=== PATIENT | female | born 1965 | race Caucasian/White ===

== ENCOUNTER 2017-05-05 04:19 | Inpatient (IN) | payer MEDICARE ==
[~2017-05-05] VITALS: Ht 162.6 cm; Wt 90.9 kg
[~2017-05-05 04:19] MED LIST: ADVAIR 250/501 DISK INH; CELEXA40 MG PO; COLACE100 MG PO; DEPAKOTE ER250 MG PO; HYDROCODON-ACE1 EAC7 PO; LASIX20 MG PO; LINZESS290 MCG PO; MOBIC7.5 MG PO; PROAIR HFA8.5 GM INH; SEROQUEL200 MG PO; TRAZODONE HCL150 MG PO; XANAX1 MG PO
[2017-05-05 04:53] LABS: BASOPHILS 0.2 % (0-2); EOSINOPHILS 3.2 % (0-7); HEMATOCRIT 40.7 % (36.0-48.0); HEMOGLOBIN 12.6 g/dL (12-16); IMMATURE GRANULOCYTES 0.3 % (0-5); LYMPHOCYTES 15.4 % (15-50); MCV 87.3 fL (80.0-100.0); NEUTROPHILS 75.9 % (40-80); PLATELET COUNT 228 10x3/uL (130-400); RBC 4.66 10x6/uL (4.00-5.40); RDW 16.4 % (11.5-14.5); WBC 12.3 10x3/uL (4.8-10.8)
[2017-05-05 05:13] LABS: ALBUMIN 3.2 g/dL (3.4-5.0); ALKALINE PHOSPHATASE 53 U/L (46-116); ALT (SGPT) 21 U/L (10-68); CALCIUM 9.6 mg/dL (8.5-10.1); CHLORIDE - SERUM 102 mmol/L (98-107); CREATININE - SERUM 0.6 mg/dL (0.6-1.3); POTASSIUM - SERUM 4.2 mmol/L (3.5-5.1); PROTEIN - SERUM 7.9 g/dL (6.4-8.2); SODIUM 139 mmol/L (136-145); UREA NITROGEN 14 mg/dL (7-18); eGFR NON AFRICAN AMERICAN > 90 mL/min (90-120)
[2017-05-05 05:16] LABS: CKMB 2.1 U/L (0.0-3.6)
[2017-05-05 05:18] LABS: CALC OSMOLALITY 283 mosm/kg (275-300); GLUCOSE 181 mg/dL (74-106); TROPONIN-I < 0.017 ng/mL (0.000-0.060)
[2017-05-05 09:37] VITALS: BP 130/88; Ht 162.6 cm; Wt 90.9 kg
[2017-05-05 13:02] VITALS: BP 128/94
[2017-05-05 17:12] VITALS: BP 140/88
--- NOTE | 2017-05-05 19:30 | NUR ---
REC'D PATIENT LYING IN BED. ALERT AND ORIENTED X4. REPORTED PAIN OF 5/10. NO DISTRESS NOTED AT THIS TIME. STATED THAT SHE TALKED TO THE AND WAS SUPPOSE TO GET A FLEXARIL. THERE IS NO ORDER AND I INFORMED HER OF THAT. ADMIN PM MEDS PRESCRIBED. INSTRUCTED TO CALL IF NEEDED ANYTHING. BED LOW, LOCKED CALL LIGHT IN REACH.
[2017-05-05 20:00] VITALS: BP 130/85
[2017-05-06] VITALS: BP 138/91
[2017-05-06 04:00] VITALS: BP 161/87
[2017-05-06 05:54] LABS: BASOPHILS 0 % (0-2); EOSINOPHILS 0 % (0-7); HEMATOCRIT 37.1 % (36.0-48.0); HEMOGLOBIN 11.9 g/dL (12-16); IMMATURE GRANULOCYTES 0.3 % (0-5); LYMPHOCYTES 18.6 % (15-50); MCHC 32.1 g/dL (31.0-37.0); MEAN PLATELET VOLUME 8.9 fL (7.4-10.4); MONOCYTES 1.7 % (2-11); NEUTROPHILS 79.4 % (40-80); PLATELET COUNT 228 10x3/uL (130-400); RBC 4.41 10x6/uL (4.00-5.40)
[2017-05-06 06:06] LABS: MCV 84.1 fL (80.0-100.0); WBC 6.6 10x3/uL (4.8-10.8)
[2017-05-06 06:09] LABS: HEMOGLOBIN A1C 6.3 % (4.8-6.0)
[2017-05-06 06:24] LABS: ALKALINE PHOSPHATASE 43 U/L (46-116); ALT (SGPT) 21 U/L (10-68); CALC OSMOLALITY 273 mosm/kg (275-300); CALCIUM 9.6 mg/dL (8.5-10.1); CARBON DIOXIDE 30.5 mmol/L (21.0-32.0); CHLORIDE - SERUM 100 mmol/L (98-107); CREATININE - SERUM 0.5 mg/dL (0.6-1.3); GLUCOSE 151 mg/dL (74-106); MAGNESIUM - SERUM 1.5 mg/dL (1.8-2.4); PHOSPHOROUS 3.9 mg/dL (2.5-4.9); POTASSIUM - SERUM 4.6 mmol/L (3.5-5.1); PRO BNP 654 pg/mL (0-125); PROTEIN - SERUM 7.4 g/dL (6.4-8.2); SODIUM 136 mmol/L (136-145); eGFR NON AFRICAN AMERICAN > 90 mL/min (90-120)
[2017-05-06 06:33] LABS: UREA NITROGEN 10 mg/dL (7-18)
[2017-05-06 08:31] VITALS: BP 125/89
--- NOTE | 2017-05-06 12:04 | NUR ---
PATIENT ALERT IN BED WATCHING TV. NO SIGNS OF DISTRESS NOTED. ACCU CHECK 113. DENIES NEEDS. SIDE RAILS UP X2. BED IN LOW POSITION. CALL LIGHT IN REACH.
[2017-05-06 12:14] VITALS: BP 120/78
[2017-05-06 16:28] VITALS: BP 111/74
--- NOTE | 2017-05-06 19:45 | NUR ---
RECIEVED SHIFT REPORT. PT IS LYING IN BED. ALERT AND ORIENTED AND ABLE TO VERBALIZE NEEDS. IV IS PATENT AND SALINE LOC AT THIS TIME. PT STATES SHE IS AMBULATORY WITH ASSISTANCE. O2 @ 2 PER NASAL CANNUAL. PARSONS IS DRAINING URINE BY GRAVITY. PT STATES PAIN IS 5/10. NO NEEDS ARE VERBALIZED AT THIS TIME. WILL CONTINUE TO MONITOR. SIDE RAILS ARE UP X 2. BED IS IN LOWEST POSITOIN. CALL LIGHT IS WITHIN REACH.
[2017-05-06 20:00] VITALS: BP 125/80
--- NOTE | 2017-05-06 21:13 | NUR ---
SHIFT ASSESSMENT COMPLETED. NIGHT MEDS GIVEN WITH NO PROBLEMS. NO NEEDS ARE VERBALIZED. WILL MONITOR. SIDE RAILS X 2. BED LOW. CALL LIGHT IN REACH.
[2017-05-07] VITALS: BP 132/86
[2017-05-07 04:00] VITALS: BP 135/88
[2017-05-07 06:23] LABS: BASOPHILS 0 % (0-2); EOSINOPHILS 0 % (0-7); HEMATOCRIT 36.2 % (36.0-48.0); HEMOGLOBIN 11.4 g/dL (12-16); IMMATURE GRANULOCYTES 0.2 % (0-5); LYMPHOCYTES 13.3 % (15-50); MCH 26.6 pg (26.0-34.0); MCHC 31.5 g/dL (31.0-37.0); MCV 84.6 fL (80.0-100.0); MEAN PLATELET VOLUME 9.1 fL (7.4-10.4); MONOCYTES 3.7 % (2-11); NEUTROPHILS 82.8 % (40-80); PLATELET COUNT 230 10x3/uL (130-400); RBC 4.28 10x6/uL (4.00-5.40); RDW 16.4 % (11.5-14.5)
[2017-05-07 06:41] LABS: CALCIUM 9.7 mg/dL (8.5-10.1); CARBON DIOXIDE 29.8 mmol/L (21.0-32.0); CHLORIDE - SERUM 100 mmol/L (98-107); GLUCOSE 143 mg/dL (74-106); MAGNESIUM - SERUM 1.8 mg/dL (1.8-2.4); PHOSPHOROUS 4.3 mg/dL (2.5-4.9); POTASSIUM - SERUM 4.8 mmol/L (3.5-5.1); SODIUM 137 mmol/L (136-145)
[2017-05-07 06:42] LABS: CALC OSMOLALITY 278 mosm/kg (275-300); CREATININE - SERUM 0.7 mg/dL (0.6-1.3); UREA NITROGEN 21 mg/dL (7-18); eGFR NON AFRICAN AMERICAN > 90 mL/min (90-120)
--- NOTE | 2017-05-07 08:15 | NUR ---
ASSESSMENT COMPLETE. SL TO L FA PATENT. O2 2L NC IN USE. BUTTOCKS REDDENED. PARSONS PATENT DRAINING YELLOW URINE. ABDOMEN DISTENDED BUT SOFT. STATES "IT HAS BEEN THAT WAY FOR YEARS."
[2017-05-07 08:19] VITALS: BP 131/62
--- NOTE | 2017-05-07 09:50 | NUR ---
OFF FLOOR TO CT VIA BED.
--- NOTE | 2017-05-07 10:10 | NUR ---
RETURNED TO ROOM. DENIES ANY NEEDS AT PRESENT.
--- NOTE | 2017-05-07 10:40 | NUR ---
Patient Name: LAKSHMI SALINAS Admission Status: ER Accout number: [id number] Admission Date: 05-05-2017 : 1965 Admission Diagnosis: Attending: LINH Current LOS: 2 Anticipated DC Date: 05-10-2017 Planned Disposition: Nursing Facility SWAPNA Cert Primary Insurance: MEDICARE A & B Discharge Planning Comments: CM MET WITH PATIENT REGARDING D/C NEEDS AND PLANS. PATIENT STATED SHE LIVES AT [facility] AND WILL RETURN THERE AT DISCHARGE. PATIENT USES A WHEELCHAIR DURING THE DAY (2 PERSON TRANSFER). PATIENTS PCP IS DR. HILL AND PHARMACY IS IN HOUSE. PATIENT USES A WHEELCHAIR DURING THE DAY - HAS HELP TRANSFERRING. PATIENT USES OXYGEN, PORT 02, NEBULIZER, AND EITHER A BI-PAP OR C-PAP SHE CAN'T REMEMBER WHICH. PCP DR. HILL IN HOUSE PHARMACY AT [facility] NO FAMILY CONTACT Junior Financial Analyst: Terrie Daniel Is the patient Alert and Oriented? Yes 0 * How many steps to enter\exit or inside your home? 0 0 * PCP DR. HILL 0 * Pharmacy IN HOUSE ([facility]) 0 * Preadmission Environment Longterm Shelter 0 * Facility Name [facility] 0 * ADLs Partial Dependent 0 * Partial ADLs (Assistance needed) Ambulation Bathing Dressing Toileting Transfers 0 * Equipment Nebulizer Oxygen Wheelchair 0 * Other Equipment PORTABLE O2, PATIENT HAS A BIPAP OR C-PAP DOES NOT KNOW WHICH ONE. 0 * List name and contact numbers for known caregivers / representatives who currently or will assist patient after discharge: [facility] (HAS NO RELATIVES) 0 * Community resources currently utilized None 0 * Additional services required to return to the preadmission environment? Yes 0 * Can the patient safely return to the preadmission environment? Yes 0 * Has this patient been hospitalized within the prior 30 days at any hospital? Yes 0 Grand Total: 0
[2017-05-07 12:04] VITALS: BP 103/66
--- NOTE | 2017-05-07 15:00 | NUR ---
NO CHANGES NOTED AT PRESENT.
[2017-05-07 15:57] VITALS: BP 136/86
--- NOTE | 2017-05-07 18:00 | NUR ---
NO CHANGES NOTED AT PRESENT.
--- NOTE | 2017-05-07 19:35 | NUR ---
RECIEVED SHIFT REPORT. PT IS LYING IN BED. ALERT AND ORIENTED AND ABLE TO VERBALIZE NEEDS. IV IS PATENT AND SALINE LOC AT THIS TIME. O2 @ 2 PER NASAL CANNULA. PARSONS IS DRAINING URINE BY GRAVITY. PT IS AMBULATORY WITH ASSISTANCE. PT DENIES ANY PAIN AT THIS TIME. NO NEEDS ARE VERBALIZED AT THIS TIME. WILL CONTINUE TO MONITOR. SIDE RAILS ARE UP X 2. BED IS IN LOWEST POSITION. CALL LIGHT IS WITHIN REACH.
[2017-05-07 20:03] VITALS: BP 128/81
--- NOTE | 2017-05-07 21:25 | NUR ---
SHIFT ASSESSMENT COMPLETED. NIGHT MEDS GIVEN WITH NO PROBLEMS. PT RECIEVED NO INSULIN PER SLIDING SCALE FOR MZOI=[id number]. NO NEEDS ARE VOICED. WILL MONITOR. SIDE RAILS X 2. BED LOW. CALL LIGHT IN REACH.
[2017-05-08 04:00] VITALS: BP 130/74
[2017-05-08 08:25] VITALS: BP 139/87
--- NOTE | 2017-05-08 08:50 | NUR ---
ASSESSMENT COMPLETE. SL TO L FA PATENT. PARSONS PATENT DRAINING YELLOW URINE. O2 2L NC IN USE. DRY, REDDENED FLAKY SKIN NOTED TO NICOL AREA/BUTTOCKS.
[2017-05-08 11:19] LABS: IMMUNOGLOBULIN E 104 IU/mL (0-100)
--- NOTE | 2017-05-08 12:00 | NUR ---
NO CHANGES NOTED AT PRESENT.
[2017-05-08 15:07] VITALS: BP 132/76
[2017-05-08 16:30] VITALS: BP 138/83
--- NOTE | 2017-05-08 18:00 | NUR ---
DENIES ANY NEEDS AT PRESENT.
[2017-05-08 19:00] VITALS: BP 121/74
--- NOTE | 2017-05-08 19:45 | NUR ---
RECIEVED SHIFT REPORT. PT IS LYING IN BED. ALERT AND ORIENTED AND ABLE TO VERBALIZE NEEDS. IS IS PATENT AND SALINE LOC AT THIS TIME. O2 @ 2 PER NASAL CANNULA. PARSONS IS DRAINING URINE BY GRAVITY. PT DENIES ANY PAIN AT THIS TIME. PT IS AMBULATORY WITH ASSISTANCE. NO NEEDS ARE VERBALIZED AT THIS TIME. WILL CONTINUE TO MONITOR. SIDE RAILS ARE UP X 2. BED IS IN LOWEST POSITION. CALL LIGHT IS WITHIN REACH.
--- NOTE | 2017-05-08 21:41 | NUR ---
SHIFT ASSESSMENT COMPLETED. NIGHT MEDS GIVEN WITH NO PROBLEMS. NO NEEDS ARE VOICED. WILL MONITOR. SIDE RAILS X 2. BED LOW. CALL LIGHT IN REACH.
[2017-05-09] VITALS (7 sets, daily range): BP systolic 126–142; BP diastolic 74–90
[2017-05-09 05:21] LABS: BASOPHILS 0 % (0-2); EOSINOPHILS 0 % (0-7); HEMOGLOBIN 12.1 g/dL (12-16); IMMATURE GRANULOCYTES 0.4 % (0-5); LYMPHOCYTES 13.6 % (15-50); MCH 26.5 pg (26.0-34.0); MCV 85.3 fL (80.0-100.0); MEAN PLATELET VOLUME 8.8 fL (7.4-10.4); MONOCYTES 7.5 % (2-11); NEUTROPHILS 78.5 % (40-80); PLATELET COUNT 220 10x3/uL (130-400); RBC 4.57 10x6/uL (4.00-5.40); RDW 16.6 % (11.5-14.5); WBC 8.5 10x3/uL (4.8-10.8)
[2017-05-09 06:04] LABS: CALC OSMOLALITY 278 mosm/kg (275-300); CALCIUM 9.8 mg/dL (8.5-10.1); CARBON DIOXIDE 32.5 mmol/L (21.0-32.0); CHLORIDE - SERUM 97 mmol/L (98-107); CREATININE - SERUM 0.8 mg/dL (0.6-1.3); GLUCOSE 141 mg/dL (74-106); POTASSIUM - SERUM 4.8 mmol/L (3.5-5.1); SODIUM 137 mmol/L (136-145); UREA NITROGEN 20 mg/dL (7-18); eGFR NON AFRICAN AMERICAN 80 mL/min (90-120)
--- NOTE | 2017-05-09 07:30 | NUR ---
RECIEVED PT DURING WALKING ROUNDS, PT RESTING IN BED WITH NO COMPLAINTS OF PAIN OR DISCOMFORT AT THIS TIME. BIPAP IN USE, TAKEN OFF AND PLACED ON OXYGEN. ASSESSMENT DONE PER FLOWSHEET. BED IN LOW POSITION AND CALL LIGHT WITHIN REACH. WILL CONTINUE TO MONITOR.
--- NOTE | 2017-05-09 21:21 | NUR ---
AWAKE,WATCHING TV QUIETLY. NO DISTRESS NOTED. SL INTACT TO LEFT FOREARM WIHTOUT REDNESS OR EDEMA NOTED. O2 @ 2L PER NC INTACAT. BILATERAL LUNG WEST WITH WHEEEZING NOTED. NON PRODUCTIVE COUGH. CL IN REACH.
--- NOTE | 2017-05-10 01:04 | NUR ---
RESTING WITH EYES CLOSED, NO DISTRESS NOTED, FALL PRECAUTIONS IN PLACE, CL IN REACH
--- NOTE | 2017-05-10 01:09 | NUR ---
RESTING QUIETLY. NO DISTRESS NOTED. CL IN REACH.
[2017-05-10 04:00] VITALS: BP 137/83
--- NOTE | 2017-05-10 06:05 | NUR ---
EYES CLOSED RESP EVEN AND UNALBORED. NO DISTRESS NOTED. CL IN REACH
--- NOTE | 2017-05-10 07:30 | NUR ---
RECIEVED PT DURING WALKING ROUNDS, PT RESTING IN BED WITH NO VISABLE SIGNS OF PAIN OR DISCOMFORT AT THIS TIME. ASSESSMENT DONE PER FLOWSHEET. BED IN LOW POSITION AND CALL LIGHT WITHIN REACH. WILL CONTINUE TO MONITOR.
[2017-05-10 08:04] VITALS: BP 154/98
--- NOTE | 2017-05-10 08:49 | EC ---
PATIENT:LAKSHMI SALINAS DATE OF SERVICE: 05/05/17 SEX: F MEDICAL RECORD: [id number] DATE OF : [birth year] LOCATION:[id number] AGE OF PATIENT: 51 ADMISSION DATE: 05/05/17 REFERRING PHYSICIAN: INTERPRETING PHYSICIAN: KATELYN KELLEY MD ECHOCARDIOGRAM REPORT ECHO CHARGES 5 ECHO LIMITED CLINICAL DIAGNOSIS: CHF ECHOCARDIOGRAPHIC MEASUREMENTS (adult normal given) AC root (d.<3.7cm) 3.6 LV Septum d (<1.2 cm> 1.5 Valve Excursion 1.7 LV Septum (systole) 1.8 Left Atria (s.<4.0cm> 3.6 LVPW d(<1.2cm) 1.3 RV (d.<2.3cm) 3.6 LVPW (sytole) 1.8 LV diastole(<5.6CM) 4.9 MV E-F(>70mm/sec) LV systole 2.6 LVOT Diameter MV exc.(>10mm) 1.6 Est.ejection fraction (50-75%) Pericardial Effusion N DOPPLER: LVIT A E LA RVSP 18 LVOT AOP1/2T Asc. Ao RVOT 96 RA PA 128 AV Gradient Peak AV Mean AV Area MV Gradient Peak MV Mean MV Area COMMENTS: Oracle Application Consultant: Lucy SCHULTZ Dungeon Master:Taina Frazier TAPE# PACS DATE OF SERVICE: 05/06/2017 Echocardiogram FINDINGS: 1. Left ventricular chamber size is within normal limits. Left ventricular systolic function is normal. Overall ejection fraction estimated at 55%. 2. Left atrium, right atrium and right ventricular chamber sizes are within normal limits. 3. Valvular structures have normal structure and motion. ECHOCARDIOGRAM REPORT [id number] LAKSHMI SALINAS 4. Doppler interrogation only reveals trace tricuspid regurgitation, no other valvular insufficiency or stenosis. Pulmonary systolic pressure is normal estimated at 16 mmHg. 5. No evidence of pericardial effusion or left ventricular thrombus. TRANSINT:[id number] Voice Confirmation ID: [id number] DOCUMENT ID: [id number] KATELYN KELLEY MD at 0849 CC: [id number] DICTATION DATE: 05/07/17 0925 ICE CREAM SERVER: 05/07/17 1759 ADM IN [place] [id number] [place] [address]
--- NOTE | 2017-05-10 09:05 | NUR ---
TURNED PT AT THIS TIME AFTER THE ADMINISTRATION OF MEDICATION. PT HAS COMPLAINTS ABOUT A SLIGHT BURNING SENSATION ON HER BOTTOM, REAPPLIED CREAM TO AREA. BED IN LOW POSITION AND CALL LIGHT WITHIN REACH. WILL CONTINUE TO MONITOR.
[2017-05-10 12:26] VITALS: BP 144/68
--- NOTE | 2017-05-10 12:45 | NUR ---
CALLED MRI AT THIS TIME IN [facility] TO PT NEEDING PRE-MEDS 1 HOUR BEFORE, WAS TOLD AT THIS TIME THAT PT WOULD BE TAKEN FOR MRI AT 1345, PRE-MEDS TO BE GIVEN ORDERED. BED IN LOW POSITION AND CALL LIGHT WITHIN REACH. WILL CONTINUE TO MONITOR.
--- NOTE | 2017-05-10 14:10 | NUR ---
PT WAS TAKEN FOR MRI AT THIS TIME.
[2017-05-10 15:47] VITALS: BP 121/82
[2017-05-10 20:00] VITALS: BP 106/70
[2017-05-11] VITALS: BP 136/80
--- NOTE | 2017-05-11 01:41 | NUR ---
PT RESTING QUIETLY, EYES CLOSED. RESP EVEN, UNLABORED. BIPAP ON. NO DISTRESS. CONTINUE CALCULATION REVIEWER'S PLAN OF CARE.
[2017-05-11 04:00] VITALS: BP 132/91
[2017-05-11 05:22] LABS: BASOPHILS 0.1 % (0-2); EOSINOPHILS 1.3 % (0-7); HEMATOCRIT 39.9 % (36.0-48.0); HEMOGLOBIN 12.5 g/dL (12-16); IMMATURE GRANULOCYTES 1.2 % (0-5); LYMPHOCYTES 27.7 % (15-50); MCH 26.9 pg (26.0-34.0); MCHC 31.3 g/dL (31.0-37.0); MCV 85.8 fL (80.0-100.0); MEAN PLATELET VOLUME 8.9 fL (7.4-10.4); MONOCYTES 9.3 % (2-11); NEUTROPHILS 60.4 % (40-80); PLATELET COUNT 200 10x3/uL (130-400); RBC 4.65 10x6/uL (4.00-5.40); RDW 16.7 % (11.5-14.5); WBC 9.9 10x3/uL (4.8-10.8)
[2017-05-11 05:40] LABS: CALC OSMOLALITY 274 mosm/kg (275-300); CALCIUM 9.7 mg/dL (8.5-10.1); CARBON DIOXIDE 34.8 mmol/L (21.0-32.0); CHLORIDE - SERUM 97 mmol/L (98-107); CREATININE - SERUM 0.6 mg/dL (0.6-1.3); GLUCOSE 79 mg/dL (74-106); POTASSIUM - SERUM 4.7 mmol/L (3.5-5.1); SODIUM 136 mmol/L (136-145); UREA NITROGEN 24 mg/dL (7-18); eGFR NON AFRICAN AMERICAN > 90 mL/min (90-120)
--- NOTE | 2017-05-11 05:48 | NUR ---
PATIENT RESTING COMFORTABLY, TAKEN OFF OF BIBAP. NO NEEDS NOTED
[2017-05-11 07:52] VITALS: BP 135/87
[2017-05-11] MEDS ORDERED: LASIX40 MG PO (10:42)
[2017-05-11] MEDS ORDERED: K-DUR20 MEQ PO (10:51)
[2017-05-11] MEDS ORDERED: METFORMIN HCL500 M1 PO (10:52)
[2017-05-11] MEDS ORDERED: LEVAQUIN750 MG PO (10:52)
[2017-05-11] MEDS ORDERED: FLORAJEN3 CAPS460 MG PO (10:53)
[2017-05-11] MEDS ORDERED: SINGULAIR10 MG PO (10:54)
[2017-05-11] MEDS ORDERED: PULMICORT0.5 MG/21 UPD (10:54)
[2017-05-11] MEDS ORDERED: FLUTICASONE PRO16 GM NASAL (10:54)
[2017-05-11] MEDS ORDERED: IPRAT-ALBUT 0.5-3 ML UPD (10:56)
[2017-05-11] MEDS ORDERED: BROVANA15 MCG/2 M INH (10:56)
[2017-05-11] MEDS ORDERED: STERAPRED DS 1010 MG PO (10:57)
[2017-05-11 12:03] VITALS: BP 121/73
--- NOTE | 2017-05-11 12:12 | NUR ---
CM REASSESSMENT NOTE: PATIENT IS DISCHARGING TODAY-[facility] IS DRIVING HER HOME AND PATIENT DENIED HOME HEALTH OR ANY OTHER NEEDS FOR DISCHARGE.
--- NOTE | 2017-05-11 12:16 | NUR ---
CM REASSESSMENT NOTE: PATIENT IS DISCHARGING BACK TO [facility] TO A DETENTION BED. [facility] WILL PICK HER UP AT 2PM
--- NOTE | 2017-05-11 13:40 | NUR ---
DISCHARGE INSTRUCTIONS COMPLETED WITH PATIENT. D/C IV WITH CATHETER INTACT. EMPTIED 2000ML FROM PARSONS CATHETER. OXYGEN AT 4L/MIN, CHECKED OXYGEN SATRUATION 97%. DECREASED TO 2L/MIN. MONITORED FOR 2 MINS. DID NOT DROP BELOW 96%.
--- NOTE | 2017-05-11 14:10 | NUR ---
PATIENT LEFT VIA WHEELCHAIR WITH STAFF MEMBER FROM [facility]. NASAL CANNULA 2L/MIN. CHECKED OXYGEN SATURATION, 95%
--- NOTE | 2017-05-11 14:49 | NUR ---
CALLED REPORT TO CONNIE AT [facility].
== END 2017-05-11 14:52 | DRG 189 ==
LOC: D.ER 04:19 → D.MS 06:20
PROVIDERS: Emergency Medicine; Internal Medicine Pulmonary Disease; ADMIT Family Medicine
DX: J96.22 Acute and chronic respiratory failure with hypercapnia (principal); J18.9 Pneumonia, unspecified organism; J44.0 Chronic obstructive pulmonary disease with (acute) lower respiratory infection; J44.1 Chronic obstructive pulmonary disease with (acute) exacerbation; F17.203 Nicotine dependence unspecified, with withdrawal; I50.32 Chronic diastolic (congestive) heart failure; G72.81 Critical illness myopathy; F31.9 Bipolar disorder, unspecified; I48.2 Chronic atrial fibrillation; E83.42 Hypomagnesemia; L89.309 Pressure ulcer of unspecified buttock, unspecified stage; Z72.89 Other problems related to lifestyle; F41.8 Other specified anxiety disorders; E03.9 Hypothyroidism, unspecified; I48.91 Unspecified atrial fibrillation; E55.9 Vitamin D deficiency, unspecified; N31.9 Neuromuscular dysfunction of bladder, unspecified